=== PATIENT | male | born 1985 | race African-American/Black ===

== ENCOUNTER 2019-07-08 15:49 | Emergency (ER) | payer OTHER ==
--- NOTE | 2019-07-08 16:00 | EDM.PDOC ---
ED HPI GENERAL MEDICAL PROBLEM - General Chief Complaint: Respiratory Problem Stated Complaint: CHEST PAIN Time Seen by Provider: 07/08/19 15:56 Source of Information: Reports: Patient History Limitations: Reports: No Limitations - History of Present Illness INITIAL COMMENTS - FREE TEXT/NARRATIVE: History of present illness: []Patient has been coughing with some shortness of breath and sinus drainage. Not measured a temperature but states he's been feeling hot and cold. Patient has a history of asthma is not currently on any steroids. Review of systems: As per history of present illness and below otherwise all systems reviewed and negative. Past medical history: As per history of present illness and as reviewed below otherwise noncontributory. Surgical history: As per history of present illness and as reviewed below otherwise noncontributory. Social history: No reported history of drug or alcohol abuse. Family history: As per history of present illness and as reviewed below otherwise noncontributory. Physical exam: General: Well developed, well nourished in NAD HEENT: Atraumatic, normocephalic, pupils reactive, negative for conjunctival pallor or scleral icterus, mucous membranes moist, throat clear, neck supple, nontender, trachea midline. No stridor Lungs: Clear to auscultation, breath sounds equal bilaterally, chest nontender. Positive expiratory wheezing bilaterally no chest wall accessory muscle use Heart: S1S2, regular, negative for clicks, rubs, or JVD. Abdomen: NABS, Soft, nondistended, nontender. Negative for masses or hepatosplenomegaly. Negative for costovertebral tenderness. Pelvis: Stable nontender. Genitourinary: Deferred. Rectal: Deferred. Extremities: Atraumatic, negative for cords or calf pain. Neurovascular unremarkable. Neuro: Awake, alert, oriented. Cranial nerves II through XII unremarkable. Cerebellum unremarkable. Motor and sensory unremarkable throughout. Exam nonfocal. Skin:warm and dry Diagnostics: vital Signs stable Therapeutics: DuoNeb, prednisone ED Course: Stable Impression: Asthma exacerbation, viral URI Prescriptions: Albuterol, prednisone 5 days Plan: Take meds as directed, follow up with your primary care physician, return to ER if symptoms worsen or change. Definitive disposition and diagnosis as appropriate pending reevaluation and review of above. Chest Pain Score (Numeric/FACES): 6 - Related Data Allergies Allergy/AdvReac Type Severity Reaction Status Date / Time shellfish derived Allergy Other Verified 07/08/19 15:58 Home Meds: Home Meds Albuterol Sulfate 1 ampule ASDIRECTED PRN 07/08/19 [History] Albuterol [Ventolin HFA] 2 puff INH Q4HR PRN #1 inhaler 07/08/19 [Rx] predniSONE [Prednisone] 20 mg PO DAILY #5 tablet 07/08/19 [Rx] ED ROS GENERAL - Review of Systems Review Of Systems: See Below ED EXAM, GENERAL - Physical Exam Exam: See Below Course - Vital Signs Last Recorded V/S: Last Vital Signs Temp 97.7 F 07/08/19 15:56 Pulse 90 07/08/19 15:56 Resp 18 07/08/19 15:56 BP 120/81 07/08/19 15:56 Pulse Ox 96 07/08/19 15:56 - Orders/Labs/Meds Orders: Active Orders 24 hr Category Date Time Status RT Aerosol Therapy [RC] ASDIRECTED Care 07/08/19 16:03 Active RT Aerosol Therapy [RC] ASDIRECTED Care 07/08/19 16:27 Active Meds: Medications Discontinued Medications Generic Name Dose Route Start Last Admin Trade Name Freq PRN Reason Stop Dose Admin Albuterol 2.5 mg 07/08/19 16:27 07/08/19 16:35 Proventil [facility] 07/08/19 16:28 2.5 mg ONETIME ONE Administration Albuterol/Ipratropium 3 ml 07/08/19 16:03 07/08/19 16:09 Duoneb 3.0-0.5 Mg/3 Ml [facility] 07/08/19 16:04 3 ml ONETIME ONE Administration Prednisone 60 mg 07/08/19 16:03 07/08/19 16:29 Prednisone PO 07/08/19 16:04 60 mg ONETIME ONE Administration Departure - Departure Time of Disposition: 16:46 Disposition: Home, Self-Care 01 Condition: Good Clinical Impression: Viral URI Asthma exacerbation Qualifiers: Asthma severity: unspecified severity Asthma persistence: unspecified Qualified Code(s): J45.901 - Unspecified asthma with (acute) exacerbation - Discharge Information *PRESCRIPTION DRUG MONITORING PROGRAM REVIEWED*: No *COPY OF PRESCRIPTION DRUG MONITORING REPORT IN PATIENT ANGELY: No Prescriptions: Albuterol [Ventolin HFA] 2 puff INH Q4HR PRN #1 inhaler PRN Reason: Shortness Of Breath predniSONE [Prednisone] 20 mg PO DAILY #5 tablet Referrals: PCP,Unknown [Primary Care Provider] - Forms: ED Department Discharge Additional Instructions: The following information is given to patients seen in the emergency department who are being discharged to home. This information is to outline your options for follow-up care. We provide all patients seen in our emergency department with a follow-up referral. The need for follow-up, as well as the timing and circumstances, are variable depending upon the specifics of your emergency department visit. If you don't have a primary care physician on staff, we will provide you with a referral. We always advise you to contact your personal physician following an emergency department visit to inform them of the circumstance of the visit and for follow-up with them and/or the need for any referrals to a consulting specialist. The emergency department will also refer you to a specialist when appropriate. This referral assures that you have the opportunity for follow-up care with a specialist. All of these measure are taken in an effort to provide you with optimal care, which includes your follow-up. Under all circumstances we always encourage you to contact your private physician who remains a resource for coordinating your care. When calling for follow-up care, please make the office aware that this follow-up is from your recent emergency room visit. If for any reason you are refused follow-up, please contact the [facility] Emergency Department at and asked to speak to the emergency department charge nurse. Take meds as directed, follow up with your primary care physician, return to ER if symptoms worsen or change. [facility] [address] [place] [id number] - My Orders Last 24 Hours: My Active Orders 07/08/19 16:03 RT Aerosol Therapy [RC] ASDIRECTED 07/08/19 16:27 RT Aerosol Therapy [RC] ASDIRECTED - Assessment/Plan Last 24 Hours: My Active Orders 07/08/19 16:03 RT Aerosol Therapy [RC] ASDIRECTED 07/08/19 16:27 RT Aerosol Therapy [RC] ASDIRECTED
[2019-07-08] MEDS ORDERED: Albuterol/Ipratropium 3.0-0.5 MG/3 ML Neb Soln NEB ONE (16:03)
[2019-07-08] MEDS ORDERED: predniSONE 20 MG Tab PO ONE (16:03)
[2019-07-08] MEDS ORDERED: Albuterol 0.083% 2.5 MG/3 ML Neb Soln NEB ONE (16:27)
== END 2019-07-08 17:15 | disposition home or self-care (01) ==
LOC: MW.ED 15:49
DX: J45.901 Unspecified asthma with (acute) exacerbation (principal); J06.9 Acute upper respiratory infection, unspecified; Z91.013 Allergy to seafood
CPT/HCPCS: 94640; 99284; A9270; 99283; J7620-GY

== ENCOUNTER 2020-06-19 10:50 | Emergency (ER) | payer OTHER ==
[2020-06-19] MEDS ORDERED: Benzocaine 20% Topical Spray UD MUCMEM ONE (11:11)
[2020-06-19] MEDS ORDERED: Ibuprofen 600 MG Tab PO ONE (11:11)
--- NOTE | 2020-06-19 11:14 | EDM.PDOC ---
ED HPI GENERAL MEDICAL PROBLEM - General Chief Complaint: ENT Problem Stated Complaint: SORE THROAT Time Seen by Provider: 06/19/20 11:02 - History of Present Illness INITIAL COMMENTS - FREE TEXT/NARRATIVE: History of present illness: 35-year-old male presenting with sore throat for the last 1 week. No fevers or chills. He does report pain with swallowing, though no inability to swallow. No neck pain or feeling like his lymph nodes are enlarged or swollen. No known sick contacts. No cough. He is an asthmatic but does not feel any difficulty breathing or chest pain. Review of systems: As per history of present illness and below otherwise all systems reviewed and negative. Past medical history: As per history of present illness and as reviewed below otherwise noncontributory. Asthma Surgical history: As per history of present illness and as reviewed below otherwise noncontributory. Social history: No reported history of drug or alcohol abuse. Daily tobacco smokerthis was discussed with the patient, especially the fact that he is an asthmatic and smoking would be more dangerous to him, he does voiced understanding of the above and does report that he is working on quitting Family history: As per history of present illness and as reviewed below otherwise noncontributory. Physical exam: GEN: no acute distress, well appearing HEENT: Atraumatic, normocephalic, mucous membranes moist, pharyngeal erythema, mild tonsillar enlargement and erythema, no exudate seen. Neck: supple, nontender, trachea midline. No lymphadenopathy Lungs: No respiratory distress. Heart: RRR Neuro: Awake, alert, oriented. Neuro Exam nonfocal. Skin: warm, dry, no lesions Diagnostics: Rapid strep swab Therapeutics: Ibuprofen 600, benzocaine spray MDM: Pharyngitis, suspect viral as no exudate present. Will check strep swab Impression: [] Plan: [] Definitive disposition and diagnosis as appropriate pending reevaluation and review of above. Throat Pain Score (Numeric/FACES): 5 - Related Data Allergies Allergy/AdvReac Type Severity Reaction Status Date / Time shellfish derived Allergy Other Verified 07/08/19 15:58 Home Meds: Home Meds . [No Known Home Meds] 06/19/20 [History] Past Medical History - Past Health History Medical/Surgical History: Denies Medical/Surgical History Respiratory History: Reports: Asthma Social & Family History - Family History Family Medical History: Noncontributory ED ROS ENT - Review of Systems Review Of Systems: See Below (See HPI) ED EXAM, ENT - Physical Exam Exam: See Below (See HPI) Course - Vital Signs Text/Narrative:: Sore throat for 1 week. Pharyngeal erythema. No tonsillar exudate. Strep swab negative. Symptoms improved after ibuprofen and benzocaine spray. Stable for discharge. Outpatient treatment plan discussed with patient. Smoking cessation discussed. Last Recorded V/S: Last Vital Signs Temp 97.5 F 06/19/20 11:06 Pulse 77 06/19/20 12:45 Resp 16 06/19/20 12:45 BP 122/72 06/19/20 12:45 Pulse Ox 100 06/19/20 12:45 - Orders/Labs/Meds Orders: Active Orders 24 hr Category Date Time Status CULTURE STREP A CONFIRMATION [] Stat Lab 06/19/20 11:46 Results STREP SCRN A RAPID W CULT CONF [] Stat Lab 06/19/20 11:46 Results Meds: Medications Discontinued Medications Generic Name Dose Route Start Last Admin Trade Name Alberto PRN Reason Stop Dose Admin Benzocaine 1 each 06/19/20 11:11 06/19/20 11:45 Hurricaine One 20% MUCMEM 06/19/20 11:12 1 each ONETIME ONE Administration Ibuprofen 600 mg 06/19/20 11:11 06/19/20 11:45 Motrin PO 06/19/20 11:12 600 mg ONETIME ONE Administration - Re-Assessments/Exams Free Text/Narrative Re-Assessment/Exam: 06/19/20 12:05 Patient was reevaluated. He does report that he is feeling much better after the medications. Strep swab still pending. 06/19/20 12:30 Swab negative for strep pharyngitis. Suspect viral pharyngitis. Will discharge. Departure - Departure Time of Disposition: 12:28 Disposition: Home, Self-Care 01 Clinical Impression: Viral pharyngitis - Discharge Information Instructions: Pharyngitis, [id number], Sore Throat, [id number] Referrals: PCP,None [Primary Care Provider] - Forms: ED Department Discharge Additional Instructions: Take ibuprofen 600 mg every 8 hours for the next 3 to 4 days and then as needed. You can also use [id number] topical anesthetic, example Chloraseptic spray to help numb your throat so that it would be easier to eat and more comfortable for you. Return to the emergency department if you develop any severe throat pain, difficulty swallowing, difficulty breathing or high fevers. Please follow-up with 1 of the primary care clinics listed below for further ongoing primary care. The following information is given to patients seen in the emergency department who are being discharged to home. This information is to outline your options for follow-up care. We provide all patients seen in our emergency department with a follow-up referral. The need for follow-up, as well as the timing and circumstances, are variable depending upon the specifics of your emergency department visit. If you don't have a primary care physician on staff, we will provide you with a referral. We always advise you to contact your personal physician following an emergency department visit to inform them of the circumstance of the visit and for follow-up with them and/or the need for any referrals to a consulting specialist. The emergency department will also refer you to a specialist when appropriate. This referral assures that you have the opportunity for follow-up care with a specialist. All of these measure are taken in an effort to provide you with optimal care, which includes your follow-up. Under all circumstances we always encourage you to contact your private physician who remains a resource for coordinating your care. When calling for follow-up care, please make the office aware that this follow-up is from your recent emergency room visit. If for any reason you are refused follow-up, please contact the [facility] Emergency Department at and asked to speak to the emergency department charge nurse. [facility] - Primary [facility] [address] [place] [address] [id number] [address] [id number] Sepsis Event Note (ED) - Evaluation Sepsis Screening Result: No Definite Risk - My Orders Last 24 Hours: My Active Orders 06/19/20 11:46 CULTURE STREP A CONFIRMATION [] Stat STREP SCRN A RAPID W CULT CONF [] Stat - Assessment/Plan Last 24 Hours: My Active Orders 06/19/20 11:46 CULTURE STREP A CONFIRMATION [RM] Stat STREP SCRN A RAPID W CULT CONF [RM] Stat
== END 2020-06-19 12:45 | disposition home or self-care (01) ==
LOC: MW.ED 10:50
DX: J02.9 Acute pharyngitis, unspecified (principal); Z91.013 Allergy to seafood
CPT/HCPCS: 87081; 87880-QW; 99283; A9270-GY

== ENCOUNTER 2022-01-15 13:42 | Emergency (ER) | payer OTHER ==
[2022-01-15] MEDS ORDERED: Ketorolac 60 MG/2 ML SDV IM ONE (14:48)
== END 2022-01-15 16:28 | disposition home or self-care (01) ==
LOC: MW.ED 13:42
DX: S90.32XA Contusion of left foot, initial encounter (principal); Z91.013 Allergy to seafood; W18.09XA Striking against other object with subsequent fall, initial encounter
CPT/HCPCS: 73630; 96372; 99283; J1885

== ENCOUNTER 2023-08-16 13:45 | Emergency (ER) | payer SELFPAY | END 2023-08-16 15:07 | disposition home or self-care (01) | LOC: MW.ED 13:45 | DX: M75.102 Unspecified rotator cuff tear or rupture of left shoulder, not specified as traumatic (principal); M75.101 Unspecified rotator cuff tear or rupture of right shoulder, not specified as traumatic; J45.909 Unspecified asthma, uncomplicated; Z91.013 Allergy to seafood | CPT/HCPCS: 99283 ==

== ENCOUNTER 2023-11-01 14:30 | Emergency (ER) | payer SELFPAY ==
[2023-11-01] MEDS ORDERED: Ketorolac 30 MG/ML SDV IVPUSH ONE (14:57)
[2023-11-01] MEDS ORDERED: methylPREDNISolone Sodium Succinate 125 MG/2 ML SDV IVPUSH ONE (14:57)
[2023-11-01] MEDS ORDERED: Sodium Chloride 0.9% 1,000 ML IV ONE (14:57)
[2023-11-01 15:42] LABS: BASOPHILS ABSOLUTE AUTO 0.02 K/uL (0.00-0.20); BASOPHILS PERCENT AUTO 0.3 % (0.0-1.0); EOSINOPHILS ABSOLUTE AUTO 0.02 K/uL (0.00-0.45); EOSINOPHILS PERCENT AUTO 0.3 % (0.0-6.0); HEMATOCRIT 40.1 % (42.0-52.0); HEMOGLOBIN 14.2 g/dL (14.0-18.0); IMMATURE GRAN ABSOLUTE AUTO 0.02 K/uL (0.00-0.05); IMMATURE GRAN PERCENT AUTO 0.3 % (0.0-0.4); LYMPHOCYTES ABSOLUTE AUTO 1.98 K/uL (1.00-4.80); LYMPHOCYTES PERCENT AUTO 27.1 % (24.0-44.0); MEAN CORPUSCULAR HEMOGLOBIN 32.9 pg (28.0-32.0); MEAN CORPUSCULAR HGB CONC 35.4 g/dL (32.0-36.0); MEAN PLATELET VOLUME 8.7 fL (9.4-12.4); MONOCYTES ABSOLUTE AUTO 0.72 K/uL (0.00-0.80); MONOCYTES PERCENT AUTO 9.8 % (0.0-8.0); NEUTROPHILS ABSOLUTE AUTO 4.55 K/uL (1.80-7.70); NEUTROPHILS PERCENT AUTO 62.2 % (41.0-71.0); PLATELET COUNT,PLT 263 K/uL (150-400); RED BLOOD CELL COUNT 4.31 M/uL (4.52-5.90); WHITE BLOOD CELL COUNT,WBC 7.31 K/uL (3.9-11.3)
[2023-11-01 16:05] LABS: D-DIMER QUANTITATIVE 0.2 mg/L FEU (0.00-0.50)
[2023-11-01 16:17] LABS: ALANINE AMINOTRANSFERASE,ALT 28 IU/L (14-63); ALBUMIN 3.6 g/dL (3.4-5.0); ALKALINE PHOSPHATASE 64 U/L (46-116); ASPARTATE AMNIOTRANSFERASE,AST 22 IU/L (15-37); BILIRUBIN TOTAL 0.4 mg/dL (0.2-1.0); BLOOD UREA NITROGEN,BUN 10 mg/dL (7.0-18.0); CARBON DIOXIDE,CO2 29.4 mmol/L (21.0-32.0); CHLORIDE,CL 104 mmol/L (98-107); CREATININE 1.1 mg/dL (0.8-1.3); EST CRCL DRUG DOSING (CG) 76.99 mL/min; GLUCOSE RANDOM 91 mg/dL (74-106); POTASSIUM,K 3.8 mmol/L (3.5-5.1); PROTEIN TOTAL,TP 7.2 g/dL (6.4-8.2); SODIUM,NA 139 mmol/L (136-148)
[2023-11-01 16:24] LABS: ESTIMATED GFR 89 mL/min (>60)
[2023-11-01 17:17] LABS: APPEARANCE,URINE CLEAR; BILIRUBIN,URINE NEGATIVE (NEGATIVE); COLOR,URINE YELLOW; GLUCOSE,URINE NEGATIVE (NEGATIVE); KETONES,URINE 15 mg/dL (NEGATIVE); LEUKOCYTE ESTERASE,URINE NEGATIVE (NEGATIVE); NITRITE,URINE NEGATIVE (NEGATIVE); OCCULT BLOOD,URINE NEGATIVE (NEGATIVE); PROTEIN,URINE NEGATIVE (NEGATIVE); UROBILINOGEN,URINE 0.2 EU/dL (<2.0)
== END 2023-11-01 17:52 | disposition home or self-care (01) ==
LOC: MW.ED 14:30
DX: R07.89 Other chest pain (principal); Z91.013 Allergy to seafood; Z79.899 Other long term (current) drug therapy
CPT/HCPCS: 36415; 71045; 80053; 81003; 84484; 85025; 85379; 85610; 85730; 93005; 96361; 96374; 96375; 99285; J1885; J2930; J3360; J7030; 93010; 99284

== ENCOUNTER 2024-01-05 10:22 | Emergency (ER) | payer SELFPAY ==
[2024-01-05] MEDS: Ibuprofen 600 MG Tab PO ONE (10:55)
== END 2024-01-05 12:30 | disposition home or self-care (01) ==
LOC: MW.ED 10:22
DX: M79.671 Pain in right foot (principal); Z91.013 Allergy to seafood
CPT/HCPCS: 73630; 99283; A9270